=== PATIENT | male | born 1945 | race Caucasian/White ===

== ENCOUNTER 2016-04-06 12:02 | Day surgery (SDC) | payer MEDICARE, BC ==
[2016-03-30 13:14] LABS: HEMATOCRIT 48.8 % (40.0-51.0); HEMOGLOBIN 16.9 g/dL (13.6-17.8)
--- NOTE | ~2016-04-06 | OP ---
Record Of Operation [facility] [address] [place]. 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 PROCEDURE PERFORMED: 1. Excisional biopsy of squamous cell carcinoma of the penis (glans). 2. Circumcision. SURGEON: Gosia Means M.D. ANESTHESIA: General. COMPLICATIONS: None. SPECIMEN: 1. Right glans excisional biopsy. 2. Perimeatal skin (right of midline). 3. Foreskin. SURGEON: Gosia Means M.D. ANESTHESIA: General. BLOOD LOSS: 5 mL. COMPLICATIONS: None. INDICATIONS: Mr. Christensen is a 71-year-old, who had a glans lesion evaluated by Dermatology. Office punch biopsy was performed showing a presumed squamous cell carcinoma, probably in situ. He is uncircumcised. There is no phimosis. He presents for circumcision with excision of the glans lesion understating that he may need further treatment with either distal penectomy or topical 5-FU or repeat fulguration. TECHNIQUE: Informed consent was obtained, received Ancef preoperatively. He was brought to the operative room, general anesthesia was administered. Lower abdomen, genitals and perineum were prepped and draped in the supine position. Physical exam showed no phimosis. There is no lesion on the foreskin. On the glans penis to the right of midline, there was a 7 mm raised erythematous area with a healing biopsy site centrally. This abutted the meatus. This abutted but did not directly involve the meatus. There were no warts. The frenulum was prominent but did not show obvious mass. I did an excisionally biopsy sharply using skin hooks to raise the flaps of the glans. Approximately 1 cm x 1.2 cm area was excised and borders and margins marked with suture for Record Of Operation [facility] [address] [place]. [address] NAME: JODIE CHRISTENSEN : 45 STATUS : [facility]#: [id number] AGE: 71 ADM/REG DATE : 04/06/16 MR#: [id number] REPORT SERV DATE: 04/06/16 DICTATED BY: GOSIA MEANS DATE: 04/06/16 REPORT STATUS : Draft TRANSCRIBED BY: STEFANI DATE: 04/06/16 identification. Additional small segment of glans skin immediately adjacent to the meatus (on the right of midline) was excised. The raw surface of the glans was then fulgurated with the Bovie using smoke evacuator. Thus hemostasis was confirmed. A new blade was used and a standard sleeve-type circumcision was performed. The thickened frenulum was entirely excised. The foreskin was divided dorsally and excised with a Bovie. The wound was irrigated. I reapproximated the excised frenulum with interrupted 4-0 chromic. The penile skin was reapproximated in four quadrants with 3-0 Vicryl. The remainder of the skin was reapproximated with interrupted 3-0 chromic. A Xeroform dressing was applied. He was taken to the recovery room in satisfactory condition. He will have his dressing removed tomorrow and we will treat the glans lesion with b.i.d. or t.i.d. Silvadene until it heals. I will see him back in two weeks if there is an invasive component. Then, distal penectomy would be considered. AAYUSH/STEFANI Gosia Means M.D. / [id number] CC: Yaneth An M.D.
[~2016-04-06 12:02] MED LIST: DIOV80 PO
[2016-04-06 12:46] LABS: BUN (BLOOD UREA NITROGEN) 21 MG/DL (6-23); CALCIUM, SERUM 9.7 MG/DL (8.5-10.4); CHLORIDE, SERUM 103 MMOL/L (96-112); CO2 (CARBON DIOXIDE) 29 MMOL/L (24-34); CREATININE 1.04 MG/DL (0.70-1.30); GFR AFRICAN AMERICAN 83 ML/MIN (>=60); GFR NON AFRICAN AMERICAN 72 ML/MIN (>=60); GLUCOSE, SERUM 105 MG/DL (60-99); SODIUM, SERUM 140 MMOL/L (135-148)
== END 2016-04-06 17:43 | disposition home or self-care (01) ==
LOC: SDC 12:02
PROVIDERS: Urology
PROC: 0VTTXZZ Resection of Prepuce, External Approach (ICD-10-PCS; 2016-04-06)
PROC: 0VBS0ZX Excision of Penis, Open Approach, Diagnostic (ICD-10-PCS; principal; 2016-04-06 13:45)
DX: D07.4 Carcinoma in situ of penis (principal); I10 Essential (primary) hypertension; Z96.1 Presence of intraocular lens; M19.90 Unspecified osteoarthritis, unspecified site; Z90.89 Acquired absence of other organs; Z98.41 Cataract extraction status, right eye; Z98.42 Cataract extraction status, left eye; Z98.890 Other specified postprocedural states; Z79.899 Other long term (current) drug therapy
CPT/HCPCS: 36415; 80048; 85014; 85018; 88304; 88305; 93005; J0690; J2405; J3010